=== PATIENT | female | born 1990 | race Native Hawaiian/Other Pacific Islander ===

== ENCOUNTER 2017-11-16 19:41 | Emergency (ER) | payer OTHER ==
[~2017-11-16] VITALS: Ht 152.4 cm; Wt 52.2 kg
[2017-11-16 19:51] VITALS: BP 107/59; TEMP 97.8
== END 2017-11-16 21:08 | disposition home or self-care (01) ==
LOC: ED 19:41
DX: K04.7 Periapical abscess without sinus (principal); K02.9 Dental caries, unspecified; F12.10 Cannabis abuse, uncomplicated
CPT/HCPCS: 80307; 81000; 99283